=== PATIENT | male | born 1950 | race Caucasian/White ===

== ENCOUNTER 2021-12-21 10:23 | Outpatient (CLI) | payer MEDICARE, OTHER, SELFPAY ==
--- NOTE | 2021-12-21 10:39 | XR_ITS ---
WS: [id number] Exam: XR hip LT 2-3V wo/w pel* [id number] Date/Time of Exam: 12/21/2021 11:04 AM Reason For Exam: L HIP PAIN No acute fracture or dislocation. Mild DJD. Normal soft tissues. XR/XR hip LT 2-3V wo/w pel* [id number] IMPRESSION: 1. No fracture. Mild DJD.
== END 2021-12-21 10:24 | disposition home or self-care (01) ==
LOC: RAD 10:27
PROVIDERS: PCP Family Medicine; Visit Provider Family Medicine
DX: M16.12 Unilateral primary osteoarthritis, left hip (principal)
CPT/HCPCS: 73502

== ENCOUNTER 2022-07-25 15:06 | Outpatient (CLI) | payer MEDICARE, OTHER, SELFPAY ==
--- NOTE | 2022-07-25 15:18 | XRR_ITS ---
PROCEDURE INFORMATION: Exam: XR Right Shoulder Exam date and time: 07/25/2022 3:20 PM Age: 71 years old Clinical indication: Injury or trauma; Fall; Blunt trauma (contusions or hematomas); Right; Injury date: ; Injury details: Fell last week and landed on RT shoulder. PT thinks he May have dislocated it; Prior surgery; Surgery type: Inmpingement on RT shoulder; Additional info: Right shoulder pain after a fall, also has history of right rotator cuff repair. TECHNIQUE: Imaging protocol: Radiologic exam of the Right shoulder. Views: 2 or more views. COMPARISON: No relevant prior studies available. FINDINGS: Bones/joints: There is significant superior offset of distal clavicle relative to the acromion with significantly increased coracoclavicular distance, highly suspicious for high-grade AC separation injury (GRADE 4 OR 5). No obvious acute fracture otherwise. Normal glenohumeral joint alignment. Slight posterolateral right 7th rib deformity with no discrete fracture line, presumably a chronic rib fracture. Soft tissues: Normal. Other findings: Three views submitted. XR/XR shoulder RT min 2V* [id number] IMPRESSION: 1. High-grade AC separation injury as described. No obvious acute fracture. 2. Probable chronic right 7th rib fracture as described.
== END 2022-07-25 15:07 | disposition home or self-care (01) ==
LOC: RAD 15:11
PROVIDERS: PCP Family Medicine; Visit Provider Clinical Nurse Specialist Adult Health
DX: S43.101A Unspecified dislocation of right acromioclavicular joint, initial encounter (principal); X58.XXXA Exposure to other specified factors, initial encounter
CPT/HCPCS: 73030

== ENCOUNTER → 2022-07-26 07:46 | Outpatient (BNVA) | payer MEDICARE, OTHER, SELFPAY | PROVIDERS: PCP Family Medicine; Referring Provider Clinical Nurse Specialist Adult Health; Visit Provider Student in an Organized Health Care Education/Training Program | DX: S43.101A Unspecified dislocation of right acromioclavicular joint, initial encounter (principal); W10.9XXA Fall (on) (from) unspecified stairs and steps, initial encounter | CPT/HCPCS: 73000; 99204 ==

== ENCOUNTER → 2022-07-27 14:16 | Outpatient (BNVA) | payer MEDICARE, OTHER, SELFPAY | PROVIDERS: PCP Family Medicine; Referring Provider Student in an Organized Health Care Education/Training Program; Visit Provider Orthopaedic Surgery | DX: S43.101A Unspecified dislocation of right acromioclavicular joint, initial encounter (principal); W10.9XXA Fall (on) (from) unspecified stairs and steps, initial encounter | CPT/HCPCS: 99214 ==

== ENCOUNTER → 2024-02-08 08:24 | Outpatient (BNVA) | payer MEDICARE, OTHER, SELFPAY | PROVIDERS: PCP Family Medicine; Visit Provider Family Medicine | DX: Z00.00 Encounter for general adult medical examination without abnormal findings (principal); I48.91 Unspecified atrial fibrillation; R42 Dizziness and giddiness; E11.9 Type 2 diabetes mellitus without complications | CPT/HCPCS: 80053; 80061; 84443; 85025 ==

== ENCOUNTER → 2024-09-23 14:17 | Outpatient (BNVA) | payer MEDICARE, OTHER, SELFPAY | PROVIDERS: PCP Family Medicine; Referring Provider Family Medicine; Visit Provider Student in an Organized Health Care Education/Training Program | DX: Z12.11 Encounter for screening for malignant neoplasm of colon (principal) | CPT/HCPCS: 99204 ==

== ENCOUNTER 2024-10-21 07:09 | Day surgery (SDC) | payer MEDICARE, OTHER, SELFPAY ==
[2024-10-21 07:25] VITALS: BP 122/91; PULSE 85; RESP 17; TEMP 36.6; O2SAT 96; BMI 26.4
--- NOTE | 2024-10-21 07:38 | P.ANESASSM_ITS ---
Pre-Anesthetic Assessment Height/Weight: Height 1.83 m Weight 88.451 kg Temp Pulse Resp BP Pulse Ox O2 Del Method 97.9 F 85 17 122/91 96 Room Air 10/21/24 07:25 10/21/24 07:25 10/21/24 07:25 10/21/24 07:25 10/21/24 07:25 10/21/24 07:25 Operation Date: 10/21/24 08:15 Proposed Procedures p Colonoscopy 10310, G0121, Z12.11(Not Applicable) - Celestino Holden MD Familial anesthetic complications: None Was Beta [place] taken within 24 hours: N/A Was Clonidine taken within 24 hours: N/A Last intake: Intake Last Liquid Date 10/20/24 Last Liquid Time 20:00 Last Solid Date 10/19/24 Last Solid Time 20:00 Social No alcohol and No tobacco Exam alert, oriented x 3, clear to auscultation bilaterally and regular rate & rhythm Airway Mallampati: Class II Dentition: chipped CV/HEM Atrial Fibrillation paroxysmal A fib on ASA and metoprolol, but recently started eliquis. Patient was taken off that therapy after 2 weeks due to symptoms of loopiness/Balance issues, which subsided upon discontinuation. Has had chronic episodes of dizziness for at least 2 years per chart review Anesthetic Plan ASA status: 3 Anesthesia: MAC Risk of > 500 ml blood loss (7ml/kg in children): No Medications/Allergies Home Medications Medication Instructions Recorded Confirmed Last Taken Type aspirin 325 mg tablet 325 mg PO DAILY 02/08/24 10/21/24 10/15/24 History metoprolol succinate 25 mg 25 mg PO DAILY #90 tabs 03/12/24 10/21/24 10/21/24 Rx tablet,extended release 24 hr epinephrine 0.3 mg/0.3 mL 0.3 mg (0.3 mL) IM ONCE PRN 03/17/24 10/21/24 Unknown Rx injection, auto-injector (EpiPen anaphylaxis #1 ea 2-Yony) rivaroxaban 20 mg tablet (Xarelto) 20 mg PO DAILY #90 tabs 10/14/24 10/21/24 Unknown Rx Allergies Allergy/AdvReac Type Severity Reaction Status Date / Time venom-wasp Allergy ALGY-Hives Verified 10/21/24 07:41 [facility] Anesthesia Medical History Atrial fibrillation Surgical History (Updated 09/23/24 @ 14:[address]) Hx of shoulder surgery rotator cuff surgery on the right Family History Other Diabetes Social History (Updated 09/23/24 @ 14:33 by RUDY Do) Smoking and tobacco/nicotine status: never used tobacco/nicotine Alcohol intake: current Alcohol intake frequency: holidays/special occasions only Alcohol type: beer Data Anesthesia Cardiac Studies: No Data to Display
[2024-10-21] MEDS: sodium chloride 0.9% 500 ML 15 ML IV (07:39)
--- NOTE | 2024-10-21 07:40 | ECG_ITS ---
[facility]: 2024-10-21 Pat Name: Vivi Trevizo Department: Room: Gender: Male Director Of Instruction: : 1950 Requested By: Fannie Hart Order Number: [id number] Maza MD: King Hudson M.D. Measurements Intervals [place] Rate: 101 P: 0 KS: 0 QRS: 7 QRSD: 90 T: -11 QT: 367 QTc: 477 Interpretive Statements ATRIAL FIBRILLATION WITH RAPID VENTRICULAR RESPONSE MINIMAL ST DEPRESSION [0.025+ mV ST DEPRESSION] No previous ECG available for comparison Electronically Signed On 10-26-2024 13:57:27 TEST RACK OPERATOR by King Hudson M.D. [email or web address]
--- NOTE | 2024-10-21 07:51 | W.PM.OPSUD ---
Surgery/Procedure H&P Update DATE OF PROCEDURE: October 21, 2024 DATE H&P PERFORMED: 09/23/25 H&P UPDATE INFORMATION: I have reviewed H&P completed within last 30 days, I have examined patient prior to procedure and No changes to prior documentation PLANNED PROCEDURE: Operation Date: 10/21/24 08:15 Proposed Procedures p Colonoscopy 99816, G0121, Z12.11(Not Applicable) - Celestino Holden MD
[2024-10-21] MEDS: metoprolol tartrate 1 mg/1 mL SDV 5 mL 2.5 MG IVP (08:25)
[2024-10-21 09:08] VITALS: BP 116/81; PULSE 107; RESP 20; TEMP 36.1; O2SAT 92
[2024-10-21 09:20] VITALS: BP 122/91; PULSE 69; RESP 20; O2SAT 90
[2024-10-21 09:30] VITALS: BP 128/92; PULSE 88; RESP 20; O2SAT 95
--- NOTE | 2024-10-21 15:35 | ANE.PACU2 ---
Inpatient post-anesthesia follow up: Airway intact: Yes Vital signs: Temperature 97.0 F Pulse Rate 88 Respiratory Rate 20 Blood Pressure 128/92 Pulse Oximetry 95 Oxygen Delivery Me thod Room Air Oxygen Flow Rate Fraction of Inspir ed Oxygen Hydration adequate: Yes Nausea and vomiting: No Pain level: 1 Mental status: Baseline
== END 2024-10-21 09:57 | disposition home or self-care (01) ==
PROVIDERS: PCP Family Medicine; Visit Provider Student in an Organized Health Care Education/Training Program
PROC: 0DJD8ZZ Inspection of Lower Intestinal Tract, Via Natural or Artificial Opening Endoscopic (ICD-10-PCS; CPT 45378; principal; 2024-10-21 08:15)
DX: Z12.11 Encounter for screening for malignant neoplasm of colon (principal); K57.30 Diverticulosis of large intestine without perforation or abscess without bleeding; D12.2 Benign neoplasm of ascending colon; D12.0 Benign neoplasm of cecum; K08.89 Other specified disorders of teeth and supporting structures; I48.0 Paroxysmal atrial fibrillation; Z79.82 Long term (current) use of aspirin; Z79.899 Other long term (current) drug therapy
CPT/HCPCS: 45380; 45385; 88305; 93005; G0121; J2704; J3490; J7040

== ENCOUNTER → 2024-11-04 13:53 | Outpatient (BNVA) | payer MEDICARE, OTHER, SELFPAY | PROVIDERS: PCP Family Medicine; Visit Provider Student in an Organized Health Care Education/Training Program | DX: Z09 Encounter for follow-up examination after completed treatment for conditions other than malignant neoplasm (principal) | CPT/HCPCS: 99213 ==

== ENCOUNTER 2024-12-02 12:49 | Outpatient (CLI) | payer MEDICARE, OTHER, SELFPAY ==
--- NOTE | 2024-12-02 13:00 | MR_ITS ---
WS: [id number] MRI BRAIN WITHOUT CONTRAST HISTORY: poor balance COMPARISON: None available. TECHNIQUE: Diffusion imaging, multiplanar T1, T2 and FLAIR imaging obtained. Normal diffusion imaging. No acute infarct. No hemorrhage. Moderate volume loss in the cerebellum and cerebrum. Mild scattered T2 and FLAIR signal hyperintensities from small vessel disease. Mild bilateral hippocampal atrophy. Ventricles and extra-axial spaces are normal. Maximum height of the pituitary gland is 10 mm which is slightly increased. Normal for adult male is 8 mm. Very slight convex rounding of the superior contour of the pituitary gland. Otherwise no signal abnormality. Dural venous sinuses and [place] demonstrate no abnormality on this unenhanced studies. Paranasal sinuses: Moderate mucoperiosteal thickening in the maxillary sinuses. Frothy secretions in the RIGHT maxillary sinus. Mastoid air cells: Normal. Calvarium and scalp: Intact. MR/MR head wo con* [id number] IMPRESSION: 1. No acute infarct or hemorrhage. 2. Moderate small vessel ischemic disease. 3. Moderate cerebral and cerebellar volume loss. 4. Mild bilateral hippocampal atrophy. 5. Mildly enlarged pituitary gland. May be related to pituitary hyperplasia. P ituitary gland is only increased in size by 2 mm. Tiny microadenoma not exclude d without IV contrast. If further evaluation is clinically thought necessary de dicated MRI of the pituitary gland with and without contrast can be obtained. 6. Maxillary sinus disease.
== END 2024-12-02 12:50 | disposition home or self-care (01) ==
PROVIDERS: PCP Family Medicine; Visit Provider Family Medicine
DX: R26.81 Unsteadiness on feet (principal); R26.89 Other abnormalities of gait and mobility; I67.82 Cerebral ischemia; R93.0 Abnormal findings on diagnostic imaging of skull and head, not elsewhere classified; G31.89 Other specified degenerative diseases of nervous system; E23.6 Other disorders of pituitary gland; J32.0 Chronic maxillary sinusitis
CPT/HCPCS: 70551

== ENCOUNTER 2024-12-24 08:17 | Outpatient (CLI) | payer MEDICARE, OTHER, SELFPAY ==
--- NOTE | 2024-12-24 08:30 | USCV_ITS ---
Vivi Trevizo Age: 74 Gender: M : 1950 Exam Date: 12/24/2024 08:28 Ordering Phys: Ildefonso Moore MD Technologist: Exam Location: [facility] [place] Indication: syncope BP: 135 / 80 HR: 82 Rhythm: Sinus Technical Quality: Adequate MEASUREMENTS (Male / Female) Normal Values 2D ECHO LV Diastolic Diameter PLAX 3.7 cm 4.2 - 5.9 / 3.9 - 5.3 cm IVS Diastolic Thickness 1.4 cm 0.6 - 1.0 / 0.6 - 0.9 cm IVS Systolic Thickness 1.8 cm LVPW Diastolic Thickness 1.6 cm 0.6 - 1.0 / 0.6 - 0.9 cm LVPW Systolic Thickness 2.0 cm LVOT Diameter 2.1 cm LV Ejection Fraction 2D Teich 63.4 % LV Ejection Fraction MOD 4C 45.3 % LV Ejection Fraction MOD 2C 78.1 % LV Ejection Fraction 2C AL 78.6 % LA Diameter 4.9 cm LA Sys Volume AL 99.1 cm cubed LA Sys Volume Index AL 45.9 cm cubed/m squared Aorta at Sinotubular Diameter 2.9 cm IVC Diameter 1.9 cm M-MODE LA Ao Ratio MM 1.4 AV Cusp Separation MM 2.4 cm DOPPLER AV Peak Velocity 93.0 cm/s LVOT Peak Velocity 61.0 cm/s AV Area Cont Eq vti 3.2 cm squared AV Area Cont Eq pk 2.2 cm squared MV Peak Velocity 84.0 cm/s TV Peak Velocity 215.5 cm/s TR Peak Velocity 220.0 cm/s TR Peak Gradient 19.4 mmHg TV Peak E Velocity 84.0 cm/s PV Peak Velocity 88.0 cm/s FINDINGS Left Ventricle Normal left ventricular size, systolic function and wall thickness, with no regional wall motion abnormalities. Left ventricular ejection fraction is estimated at 50-55 %. Grade II/IV diastolic dysfunction, moderately elevated filling pressures. Right Ventricle The right ventricle is normal in size and function. Right Atrium Moderately increased right atrial size. Left Atrium Moderately increased left atrial size. Mitral Valve Moderately thickened mitral valve. No mitral valve stenosis. Moderate mitral valve regurgitation. Aortic Valve Mild aortic valve calcification. No aortic valve stenosis. Trace aortic valve regurgitation. Tricuspid Valve Moderate tricuspid valve regurgitation. Pulmonic Valve Structurally normal pulmonic valve without significant stenosis. There is no pulmonic regurgitation. Pericardium Normal pericardium without effusion. Aorta Normal ascending aorta dimension. IVC The inferior vena cava appears normal. CONCLUSIONS Normal left ventricular size, systolic function and wall thickness, with no regional wall motion abnormalities. Left ventricular ejection fraction is estimated at 50-55 %. Grade II/IV diastolic dysfunction, moderately elevated filling pressures. Moderately increased left atrial size. Moderately increased right atrial size. Moderately thickened mitral valve. No mitral valve stenosis. Moderate mitral valve regurgitation. Mild aortic valve calcification. No aortic valve stenosis. Trace aortic valve regurgitation. Moderate tricuspid valve regurgitation. There is no pericardial effusion. Right atrial pressure is around 10 mm of mercury. Bernie Stockton MD (Electronically Signed) Final Date: 09 January 2025 16:23 S
== END 2024-12-24 08:18 | disposition home or self-care (01) ==
LOC: RAD 08:18
PROVIDERS: PCP Family Medicine; Visit Provider Family Medicine
DX: R42 Dizziness and giddiness (principal); I48.91 Unspecified atrial fibrillation; R93.1 Abnormal findings on diagnostic imaging of heart and coronary circulation; I34.0 Nonrheumatic mitral (valve) insufficiency; I35.8 Other nonrheumatic aortic valve disorders; I07.1 Rheumatic tricuspid insufficiency
CPT/HCPCS: 93306

== ENCOUNTER → 2025-07-15 09:51 | Outpatient (BNVA) | payer MEDICARE, OTHER, SELFPAY | PROVIDERS: PCP Family Medicine; Referring Provider Family Medicine; Visit Provider Specialist | DX: R42 Dizziness and giddiness (principal); R26.89 Other abnormalities of gait and mobility; R26.81 Unsteadiness on feet; I48.91 Unspecified atrial fibrillation; R26.9 Unspecified abnormalities of gait and mobility; E23.7 Disorder of pituitary gland, unspecified; R03.0 Elevated blood-pressure reading, without diagnosis of hypertension | CPT/HCPCS: 36415; 84146; 84439; 84443; 99204 ==

== ENCOUNTER 2025-07-24 08:51 | Outpatient (CLI) | payer MEDICARE, OTHER, SELFPAY | END 2025-07-24 08:52 | disposition home or self-care (01) | LOC: LAB 08:53 | PROVIDERS: PCP Family Medicine; Visit Provider Specialist | DX: R42 Dizziness and giddiness (principal); R26.89 Other abnormalities of gait and mobility; R26.81 Unsteadiness on feet | CPT/HCPCS: 36415; 83520 ==

== ENCOUNTER 2025-07-26 16:52 | Emergency (ER) | payer MEDICARE, OTHER, SELFPAY ==
--- OUTSIDE RECORDS SUMMARY | 2025-07-26 16:55 | XMS_ITS | Encounter Summary ---
Author Organization [facility] Address [address] [place] [address] Care Team Providers Care Opener Tender Name Role Phone Unavailable Primary Care Provider Unavailabl e Encounter Details Date Type Department Care Team (Late st Contact Info) Description 02/09/2007 Outpatient Historical [facility] Orthoped[facility]- [address] [place] [address] [address] [phone] Other Affections of Shoulder Region, not Elsewhere Classified (Primary Dx); Osteoarth NOS-Shlder Social History Tobacco Use Types Packs/Day Years Used Date Smoking Tobacco: Never Assessed Sex and Gender Information Value Date Recorded Sex Assigned at Not on file Legal Sex Male 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
--- OUTSIDE RECORDS SUMMARY | 2025-07-26 16:55 | XMS_ITS | Clinical Summary ---
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
--- OUTSIDE RECORDS SUMMARY | 2025-07-26 16:55 | XMS_ITS | Encounter Summary ---
Author Organization [facility] Address [address] [place] [address] Care Team Providers Care Yarder Engineer Name Role Phone Unavailable Primary Care Provider Unavailabl e Encounter Details Date Type Department Care Team (Latest Contact Info) Description 09/22/1999 Outpatient Historical [facility] Medicine [address] [phone] Mckinley Gutierrez MD [address] [address] Pneumonia, organism unspecified(486) (Primary Dx); Dermatophytosis of the body Social History Tobacco Use Types Packs/Day Years Used Date Smoking Tobacco: Never Assessed Sex and Gender Information Value Date Recorded Sex Assigned at Not on file Legal 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
--- OUTSIDE RECORDS SUMMARY | 2025-07-26 16:55 | XMS_ITS | Encounter Summary ---
Author Organization [facility] Address [address] [place] [address] Care Team Providers Care Senior Asp Net Developer Name Role Phone Unavailable Primary Care Provider Unavailabl e Encounter Details Date Type Department Care Team (Latest Contact Info) Description 05/13/2002 Outpatient Historical [facility] Medicine [address] [phone] Mckinley Gutierrez MD [address] [address] ALLERGY, UNSPECIFIED (Primary Dx); ALLERGIC RHINITIS NOS; SCREENING FOR CONDITION NOS; SCREENING MAL NEOP-PROSTATE Social History Tobacco Use Types Packs/Day Years Used Date Smoking Tobacco: Never Assessed Sex and Gender Information Value Date Recorded Sex Assigned at Not on file Legal 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
--- OUTSIDE RECORDS SUMMARY | 2025-07-26 16:55 | XMS_ITS | Encounter Summary ---
Author Organization [facility] Address [address] [place] [address] Care Team Providers Care Hand Flesher Name Role Phone Unavailable Primary Care Provider Unavailabl e Encounter Details Date Type Department Care Team (Late st Contact Info) Description 10/23/2006 Outpatient Historical [facility] Orthopedics- [address] [place] [address] [address] [phone] Other Affections of Shoulder Region, not Elsewhere Classified (Primary Dx); Unspecified Arthropathy, Shoulder Region Social History Tobacco Use Types Packs/Day Years Used Date Smoking Tobacco: Never Assessed Sex and Gender Information Value Date Recorded Sex Assigned at Not on file Legal Sex Male 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
--- OUTSIDE RECORDS SUMMARY | 2025-07-26 16:55 | XMS_ITS | Encounter Summary ---
Author Organization [facility] Address [address] [place] [address] Care Team Providers Care Associate Program Manager Name Role Phone Unavailable Primary Care Provider Unavailabl e Encounter Details Date Type Department Care Team (Late st Contact Info) Description 03/09/2007 Outpatient Historical [facility] Orthopedics- [address] [place] [address] [address] [phone] Other Affections of Shoulder Region, not Elsewhere Classified (Primary Dx) Social History Tobacco Use Types Packs/Day Years Used Date Smoking Tobacco: Never Assessed Sex and Gender Information Value Date Recorded Sex Assigned at Not on file Legal Sex Male 4:39 AM 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
--- OUTSIDE RECORDS SUMMARY | 2025-07-26 16:55 | XMS_ITS | Encounter Summary ---
Author Organization [facility] Address [address] [place] [address] Care Team Providers Care Mobile Therapist Name Role Phone Unavailable Primary Care Provider Unavailabl e Encounter Details Date Type Department Care Team (Late st Contact Info) Description 03/21/[address] 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
--- OUTSIDE RECORDS SUMMARY | 2025-07-26 16:55 | XMS_ITS | Encounter Summary ---
Author Organization [facility] Address [address] [place] [address] Care Team Providers Care Director Of Grants Name Role Phone Unavailable Primary Care Provider Unavailabl e Encounter Details Date Type Department Care Team (Latest Contact Info) Description 12/17/2001 Outpatient Historical [facility] Medicine [address], [place] [phone] Mckinley Gutierrez MD [address] [place] [phone] DERMATOPHYTOSIS OF NAIL (Primary Dx) Social History Tobacco Use Types Packs/Day Years Used Date Smoking Tobacco: Never Assessed Sex and Gender Information Value Date Recorded Sex Assigned at Not on file Legal 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
--- OUTSIDE RECORDS SUMMARY | 2025-07-26 16:55 | XMS_ITS | Encounter Summary ---
Author Organization [facility] Address [address] [place] [address] Care Team Providers Care Home Visit Field Care Manager Name Role Phone Unavailable Primary Care Provider Unavailabl e Encounter Details Date Type Department Care Team (Latest Contact Info) Description 07/12/2002 Outpatient Historical [facility] Medicine [address], [place] [phone] Mckinley Gutierrez MD [address] [place] [phone] VACCINE FOR INFLUENZA (Primary Dx) Social History Tobacco Use Types Packs/Day Years Used Date Smoking Tobacco: Never Assessed Sex and Gender Information Value Date Recorded Sex Assigned at Not on file Legal Sex Male 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
--- OUTSIDE RECORDS SUMMARY | 2025-07-26 16:55 | XMS_ITS | Encounter Summary ---
Author Organization [facility] Address [address] [place] [address] Care Team Providers Care Landscape Designer Name Role Phone Unavailable Primary Care Provider Unavailabl e Encounter Details Date Type Department Care Team (Latest Contact Info) Description 11/22/1999 Outpatient Historical [address] [phone] Andra Guzman MD [address] [place] [address], [address] Rash and other nonspecific skin eruption (Primary Dx) Social History Tobacco Use Types Packs/Day Years Used Date Smoking Tobacco: Never Assessed Sex and Gender Information Value Date Recorded Sex Assigned at Not on file Legal Sex Male 4:39 AM MANAGER PEOPLE Gender Identity Not on file Sexual Orientation Not on file documented as of this encounter Plan of Treatment Not on file documented as of this encounter Visit Diagnoses Diagnosis Rash and other nonspecific skin eruption- Primary documented in this encounter
--- OUTSIDE RECORDS SUMMARY | 2025-07-26 16:55 | XMS_ITS | Encounter Summary ---
Author Organization [facility] Address [address] [place] [address] Care Team Providers Care Fibre Optic Cable Splicer Name Role Phone Unavailable Primary Care Provider Unavailabl e Encounter Details Date Type Department Care Team (Latest Contact Info) Description 10/13/1999 Outpatient Historical [facility] Medicine [address] [phone] Mckinley Gutierrez MD [address] [place] [phone] Unspecified viral infection, in conditions classified elsewhere and of unspecified site (Primary Dx) Social History Tobacco Use Types Packs/Day Years Used Date Smoking Tobacco: Never Assessed Sex and Gender Information Value Date Recorded Sex Assigned at Not on file Legal Sex Male 4:39 AM HAND ROUNDER Gender Identity Not on file Sexual Orientation Not on file documented as of this encounter Plan of Treatment Not on file documented as of this encounter Visit Diagnoses Diagnosis Unspecified viral infection, in conditions classified elsewhere and of unspecified site- Primary documented in this encounter
--- OUTSIDE RECORDS SUMMARY | 2025-07-26 16:55 | XMS_ITS | Clinical Summary ---
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
--- OUTSIDE RECORDS SUMMARY | 2025-07-26 16:55 | XMS_ITS | Encounter Summary ---
Author Organization [facility] Address [address] [place] [address] Care Team Providers Care Card Grinder Name Role Phone Unavailable Primary Care Provider Unavailabl e Encounter Details Date Type Department Care Team (Latest Contact Info) Description 10/04/1999 Outpatient Historical [facility] Medicine [address] [id number] Mckinley Gutierrez MD [address] [address] Pneumonia, organism unspecified(486) (Primary Dx) Social History Tobacco Use Types Packs/Day Years Used Date Smoking Tobacco: Never Assessed Sex and Gender Information Value Date Recorded Sex Assigned at Not on file Legal 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
--- OUTSIDE RECORDS SUMMARY | 2025-07-26 16:55 | XMS_ITS | Encounter Summary ---
Author Organization [facility] Address [address] [place] [address] Care Team Providers Care Research Staff Member Name Role Phone Unavailable Primary Care Provider Unavailabl e Encounter Details Date Type Department Care Team (Latest Contact Info) Description 02/05/2001 Outpatient Historical [facility] Medicine [address], [place] [phone] Mckinley Gutierrez MD [address] [address] Pain in limb (Primary Dx) Social History Tobacco Use Types Packs/Day Years Used Date Smoking Tobacco: Never Assessed Sex and Gender Information Value Date Recorded Sex Assigned at Not on file 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
[2025-07-26 17:06] VITALS: BP 108/73; PULSE 98; RESP 17; TEMP 36.5; O2SAT 98; BMI 25.7
--- NOTE | 2025-07-26 17:38 | ED_ITS ---
HPI - Back Pain/Injury General: Chief Complaint: Back Pain/Injury Stated Complaint: Back Pain Time Seen by Provider: 07/26/25 17:09 History of Present Illness: Chief complaint: Right SI pain Content: Patient is a 74-year-old gentleman history of atrial fibrillation on metoprolol and Xarelto, presents to the emergency room with a fall to his right side of his back. He complains of pain in his right SI. This was 10 days ago. Worse with movement. Pain is in his back and radiates to his hip and down his leg. No nausea, vomiting. Pain is mainly present with movement. He has attempted hydrocodone that he had leftover, Tylenol, ibuprofen. Nothing seems to help. Associated symptoms: Reports difficulty walking; Deny abdominal pain, fatigue, fever(s), nausea or syncope Related Data Previous Rx's ?Medication ?Instructions ?Recorded epinephrine 0.3 mg/0.3 mL 0.3 mg (0.3 mL) IM ONCE PRN 03/17/24 injection, auto-injector (EpiPen anaphylaxis #1 ea 2-Yony) rivaroxaban 20 mg tablet (Xarelto) 20 mg PO DAILY #90 tabs 10/14/24 Held on 10/21/24. Instructions: Resume on 10/22/24. metoprolol succinate 25 mg 25 mg PO DAILY #90 tabs tablet,extended release 24 hr gabapentin 300 mg capsule 300 mg PO BEDTIME 1 day #30 caps 07/26/25 methocarbamol 500 mg tablet 500 mg PO Q8H PRN muscle s pasm #30 07/26/25 tabs methylprednisolone 4 mg tablets in See Rx Instructions PO .COMPLEX 07/26/25 a dose pack (Medrol (Yony)) #21 ea Allergies Allergy/AdvReac Type Severity Reaction Status Date / Time apixaban (From Eliquis) Allergy dizziness Verified 07/15/25 10:07 venom-wasp Allergy ALGY-Hives Verified 07/15/25 10:07 Review of Systems Const: Denies: fever(s), change in weight or fatigue Eyes: Denies: change in vision, blurry vision, blind spots, photophobia, eye discomfort, seeing flashes or other (Glaucoma) ENMT: Denies: odynophagia, hoarseness, change in hearing, tinnitus, sinus pain or other (Loss of taste/smell) Card: Denies: chest pain, palpitations, syncope or other (Calf cramps) Resp: Denies: dyspnea, non-productive cough, wheezing or hemoptysis GI: Denies: abdominal pain, nausea, heartburn, diarrhea, constipation or hematochezia : Denies: urinary frequency or urinary incontinence Musc: Reports: back pain, extremity pain, joint pain and joint stiffness; Denies: neck pain, muscle weakness or other (Muscle pain) Skin/Breast: Denies: rash, new lesions or breast mass Neuro: Reports: difficulty walking; Denies: headache(s), numbness in extremities, weakness in extremities, sensory changes, lack of coordination, Slurred speech present or seizure-like activity Psych: Denies: depression, irritability, memory loss, difficulty concentrating or other (Personality changes) Endo: Denies: polyuria, polydipsia, excessive sweating or change in body appearance Zackery/Lymph: Denies: easy bruising, easy bleeding or enlarged lymph nodes PFSH ED PFSH: Medical History (Updated 07/26/25 @ 17:41 by KIRT Scott) Atrial fibrillation Surgical History Hx of shoulder surgery rotator cuff surgery on the right Family History Other Diabetes Social History Smoking and tobacco/nicotine status: former use of tobacco/nicotine Alcohol intake: current Alcohol intake frequency: holidays/special occasions only Alcohol type: beer Physical Exam Const: COMMON NORMALS: no acute distress, average body habitus and patient oriented x3 GENERAL APPEARANCE: cooperative and comfortable HENMT: COMMON NORMALS: normocephalic and atraumatic HEAD & SCALP: normocephalic and atraumatic Eye: COMMON NORMALS: Equal, round and reactive pupils present, EOMs intact bilaterally and conjunctivae normal CONJUNCTIVA: Yes conjunctivae normal PUPIL: Yes Equal, round and reactive pupils present Neck/C-Spine: COMMON NORMALS: no JVD Lymph: LYMPHATIC: no lymphadenopathy noted Chest: COMMONS NORMALS: normal inspection of the chest and normal palpation of entire chest wall Resp: COMMON NORMALS: normal respiratory effort, No retractions, No use of accessory muscles, clear to auscultation bilaterally and percussion normal AUSCULTATION: clear to auscultation bilaterally PERCUSSION: percussion normal Cardio: COMMON NORMALS: no JVD, regular rate, regular rhythm, S1 normal heart sound present, S2 normal heart sound present, No gallops present (Cardio), No clicks present (Cardio), No murmurs present (Cardio), No rub (Cardio) and Peripheral pulses 2+ throughout RATE: regular rate RHYTHM: regular rhythm HEART SOUNDS: S1 normal heart sound present and S2 normal heart sound present PERIPHERAL PULSES: Peripheral pulses 2+ throughout GI: COMMON NORMALS: Normal to inspection, nondistended, normoactive bowel sounds present, Soft to palpation, non-tender, No hepatosplenomegaly present, no masses and no bruits PALPATION: Yes Soft to palpation and Yes No hepat osplenomegaly present : COMMON NORMALS: Yes no CVA tenderness BLADDER/KIDNEY EXAM: Yes no CVA tenderness Back/Pelvis: COMMON NORMALS: no CVA tenderness LUMBAR SPINE/LOWER BACK: Yes straight leg raise positive right Straight leg raise positive details right: at 40 degrees SACROILIAC JOINTS: Yes SI joint(s) abnormal SI joint details: tender to palpation (right) Extremity: COMMON NORMALS: normal to inspection and full ROM Neuro: COMMON NORMALS: patient oriented x3 Course Vital Signs: Vital signs: Vital Signs Temperature 97.7 F 07/26/25 17:06 Pulse Rate 98 07/26/25 17:06 Respiratory Rate 17 07/26/25 17:06 Blood Pressure 108/73 07/26/25 17:06 Pulse Oximetry 98 07/26/25 17:06 Oxygen Delivery Me thod Room Air 07/26/25 17:06 MDM - Back Pain/Injury Medical Decision Making Patient is a quite pleasant 74-year-old gentleman that comes to the emergency room with right sacroiliitis. This is consistent on exam, and straight leg raise is positive. He was given ketorolac, Norflex, and dexamethasone. Gabapentin as well as Robaxin have been sent to the pharmacy. He will follow-up with his primary care physician. Medical Records I reviewed the patient's medical records. Labs Radiology Impressions Hip/Pelvis X-Ray 07/26/25 17:38 IMPRESSION: Advanced age-appropriate degenerative spinal changes, with other chronic/non-acute findings as described above. COMMENTS: If symptoms suggest acute fracture, CT may be useful for high clinical index of suspicion; otherwise persistent or progressive symptoms may warrant nonurgent MRI. XR interpretation done by ED provider, pending radiology final review Discharge Plan Discharge Patient Disposition: Home Clinical Impression: Sciatica Condition: Stable Prescriptions: New methocarbamol 500 mg tablet 500 mg PO Q8H PRN (Reason: muscle spasm) Qty: 30 0RF gabapentin 300 mg capsule 300 mg PO BEDTIME 1 Days Qty: 30 0RF methylprednisolone [Medrol (Yony)] 4 mg tablets,dose pack See Rx Instructions .ROUTE .COMPLEX Qty: 21 0RF Rx Instructions: for 6 days No Action epinephrine [EpiPen 2-Yony] 0.3 mg/0.3 mL auto-injector 0.3 mg IM ONCE PRN (Reason: anaphylaxis) Qty: 1 1RF Xarelto 20 mg tablet 20 mg PO DAILY Qty: 90 3RF Rx Instructions: must administer with evening meal metoprolol succinate 25 mg tablet extended release 24 hr 25 mg PO DAILY Qty: 90 11RF Discharge Orders: Discharge ED (Routine); Ordered 07/26/25 Ordered By: Mira Henson Referrals: Ildefonso Moore MD [Primary Care Provider, Family Practice] Discharge Diet: Usual diet Patient Instructions: Sciatica (ED), Patient Portal & Sweetie Instructions Activity Restrictions/Additional Instructions: - Ice this area - Tylenol for pain - Medrol Dosepak, muscle relaxer Robaxin/methocarbamol, and gabapentin for peripheral nerve spasms that have been sent to your pharmacy. Use as directed. Gabapentin may be increased to 2 tomorrow. - Call your doctor on Monday for close follow-up Thank you for choosing [facility] for your healthcare needs today. You have been screened and evaluated and felt safe for discharge. Health conditions do change or evolve sometimes and as such it is important that you follow up with your Primary Doctor to be re checked, 3-5 days is a general good time frame for follow up. 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
--- NOTE | 2025-07-26 17:38 | XRR_ITS ---
PROCEDURE INFORMATION: Exam: XR Right Hip Exam date and time: 07/26/2025 5:45 PM Age: 74 years old Clinical indication: Injury or trauma; Fall; Blunt trauma (contusions or hematomas); Right; Hip; Additional info: Fall 10 days ago, with pelvis please TECHNIQUE: Imaging protocol: Radiologic exam of the right hip. Views: 1 view hip with pelvis when performed. Total images: 1 COMPARISON: No relevant prior studies available. 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 Sacroiliac joint degenerative manifestations. Severe chronic generalized degenerative changes of the vertebral column, including multilevel osteophytes, degenerative disc height loss, vacuum disc phenomenon, and facet arthrosis, consistent with patient age. Bilateral hip mild degenerative change. Generalized bony tendon origin/insertion proliferative enthesopathy, mild. Bilateral iliopubic line indistinct contours which may represent pagetoid change. Soft tissues: Soft tissues are normal as visualized, demonstrating no masses or swelling/induration. Vasculature: Vascular structures demonstrate moderate atherosclerosis. Other findings: Incidental pelvic phleboliths noted. 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 COMMENTS: If symptoms suggest acute fracture, CT may be useful for high clinical index of suspicion; otherwise persistent or progressive symptoms may warrant nonurgent MRI.
[2025-07-26] MEDS: orphenadrine 30 mg/mL Inj 2 mL IM (18:05)
== END 2025-07-26 18:31 | disposition home or self-care (01) ==
PROVIDERS: Emergency Provider Physician Assistant; PCP Family Medicine
DX: M54.31 Sciatica, right side (principal); Z87.891 Personal history of nicotine dependence
CPT/HCPCS: 73502; 96372; 99284; J1100; J1885; J2360

== ENCOUNTER 2025-08-05 12:03 | Outpatient (CLI) | payer MEDICARE, OTHER, SELFPAY ==
--- NOTE | 2025-08-05 12:15 | MR_ITS ---
WS: [id number] MRI LUMBAR SPINE NONCONTRAST TECHNIQUE: Sagittal T1, T2 and STIR imaging. Axial T1 and T2 imaging. CLINICAL INFORMATION: sciatica COMPARISON: None. FINDINGS: Mild lumbar curve. No acute compression. No high-grade central canal stenosis. Degenerative disc disease worse at L4-5 with endplate degenerative changes. Edema within the RIGHT greater than LEFT paraspinal musculature L2-L5 suspicious for ligamentous injury. L1-L2: Normal. L2-L3: Mild annular bulging. Mild facet arthropathy. Spinal canal and foramen are patent. L3-L4: Mild annular bulging. Narrowing of the RIGHT subarticular recess. Moderate facet arthropathy. Mild RIGHT foraminal narrowing. Tiny LEFT foraminal protrusion with slight encroachment on the exiting L3 nerve root. L4-L5: Mild disc bulging with impingement subarticular recess bilaterally and traversing L5 nerve roots. Mild central canal stenosis. Moderate to advanced facet arthropathy. Moderate bilateral foraminal narrowing. L5-S1: Mild annular bulging. Moderate facet arthropathy. Spinal canal and foramen are patent. Partially evaluated RIGHT renal cyst measuring 2.5 cm. MR/MR lumbar spine wo con* [id number] IMPRESSION: 1. Edema within the RIGHT greater than LEFT paraspinal musculature L2-L5 james picious for ligamentous injury. 2. Disc bulging L4-5 impinges the subarticular recess and traversing L5 nerve roots bilaterally. Moderate bilateral foraminal narrowing. Mild central canal s tenosis. 3. Mild disc bulging with impingement on the RIGHT subarticular recess L3-4 4. Moderate to advanced facet arthropathy L4-L5 and L5-S1 with a small amount of edema.
== END 2025-08-05 12:04 | disposition home or self-care (01) ==
LOC: RAD 12:04
PROVIDERS: PCP Family Medicine; Visit Provider Family Medicine
DX: M47.816 Spondylosis without myelopathy or radiculopathy, lumbar region (principal); M51.16 Intervertebral disc disorders with radiculopathy, lumbar region; M51.26 Other intervertebral disc displacement, lumbar region; M48.061 Spinal stenosis, lumbar region without neurogenic claudication; M51.379 Other intervertebral disc degeneration, lumbosacral region without mention of lumbar back pain or lower extremity pain; M47.817 Spondylosis without myelopathy or radiculopathy, lumbosacral region; M99.63 Osseous and subluxation stenosis of intervertebral foramina of lumbar region
CPT/HCPCS: 72148